=== PATIENT | female | born 1995 | race Caucasian/White ===

== ENCOUNTER 2018-02-02 19:16 | Emergency (ER) | payer OTHER ==
[2018-02-02 19:33] VITALS: BP 113/76; PULSE 82; RESP 20; TEMP 98.4; O2SAT 100
[2018-02-02 20:05] LABS: HCG,QUALITATIVE URINE NEGATIVE (NEGATIVE)
[2018-02-02 20:11] LABS: SQUAMOUS EPITHIAL 11 /hpf (0-5); URINE BACTERIA RARE (<OCC); URINE BILIRUBIN NEGATIVE (NEGATIVE); URINE BLOOD NEGATIVE (NEGATIVE); URINE CLARITY Clear (Clear); URINE COLOR Yellow (YELLOW); URINE GLUCOSE (UA) NORMAL (Normal); URINE LEUKOCYTE ESTERASE TRACE Leu/uL (Negative); URINE PROTEIN NEGATIVE (NEGATIVE)
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
[2018-02-02] MEDS ORDERED: cefTRIAXone (Rocephin) 250 mg Inj IM STA (21:34)
== END 2018-02-02 22:05 | disposition home or self-care (01) ==
LOC: C.ER 19:16
DX: T76.21XA Adult sexual abuse, suspected, initial encounter (principal)
CPT/HCPCS: 81001; 84703; 96372; 99283; J0696